=== PATIENT | male | born 1990 | race Caucasian/White ===

== ENCOUNTER → 2020-11-14 | Emergency (ER) | payer OTHER ==
[~2020-11-14] VITALS: Ht 172.7 cm; Wt 59.0 kg
[~2020-11-14] MED LIST: CEPHALEXIN500 MG PO
[2020-11-14 14:40] VITALS: BP 149/101
== END ==
LOC: ER 14:34
DX: M79.674 Pain in right toe(s) (principal); F17.210 Nicotine dependence, cigarettes, uncomplicated